=== PATIENT | male | born 1975 | race Asian ===

== ENCOUNTER 2017-02-04 13:04 | Emergency (ER) | payer OTHER ==
[2017-02-04 13:17] VITALS: BP 132/87
--- NOTE | 2017-02-04 13:26 | EDM.PDOC ---
ED HPI GENERAL MEDICAL PROBLEM - General Chief Complaint: Bite:Animal, Insect Stated Complaint: [id number] DOG BITE WORK[employer] COMP Time Seen by Provider: 02/04/17 13:22 Source of Information: Reports: Patient History Limitations: Reports: No Limitations - History of Present Illness INITIAL COMMENTS - FREE TEXT/NARRATIVE: 41 yo White Male c/o dog bite to right thigh Onset Date: 02/04/17 Onset Time: 12:00 Duration: Hour(s): Location: Reports: Lower Extremity, Left Quality: Reports: Ache Severity: Moderate Improves with: Reports: None Worsens with: Reports: Movement Associated Symptoms: Reports: No Other Symptoms - Related Data Allergies Allergy/AdvReac Type Severity Reaction Status Date / Time No Known Allergies Allergy Verified 02/04/17 13:10 Home Meds: Home Meds Aspirin [Halfprin] 1 tab PO DAILY 02/04/17 [History] Lisinopril 20 mg PO DAILY 02/04/17 [History] glyBURIDE [Glyburide] 5 mg PO DAILY 02/04/17 [History] metFORMIN [Glucophage XR] 1,000 mg PO DAILY 02/04/17 [History] ED ROS GENERAL - Review of Systems Review Of Systems: See Below Constitutional: Reports: No Symptoms HEENT: Reports: No Symptoms Respiratory: Reports: No Symptoms Cardiovascular: Reports: No Symptoms Endocrine: Reports: No Symptoms GI/Abdominal: Reports: No Symptoms : Reports: No Symptoms Musculoskeletal: Reports: No Symptoms Skin: Reports: Other (left ant.-lat thigh w/ 2 cm dog bite wound) Neurological: Reports: No Symptoms Psychiatric: Reports: No Symptoms Hematologic/Lymphatic: Reports: No Symptoms Immunologic: Reports: No Symptoms ED EXAM, ANIMAL BITE - Physical Exam Exam: See Below Exam Limited By: No Limitations General Appearance: Alert, WD/WN Eye Exam: Bilateral Eye: EOMI, PERRL Ears: Normal External Exam Nose: Normal Inspection Throat/Mouth: Normal Inspection Head: Atraumatic Neck: Normal Inspection Respiratory/Chest: No Respiratory Distress Cardiovascular: Normal Peripheral Pulses Peripheral Pulses: 2+: Femoral (L), Femoral (R) GI/Abdominal: Normal Bowel Sounds (Male) Exam: No Hernia Back Exam: Normal Inspection, Paraspinal Tenderness Extremities: Normal Range of Motion Neurological: Alert, Oriented Psychiatric: Normal Affect Skin Exam: Other (dog bite wound approx. 2cm w/o active bleeding) Lymphatic: No Adenopathy ED ANIMAL BITE PROCEDURES - Additional/Other Procedure(s) Other (Free Text) Procedure(s): Dog bite wound cleaned and edges approximated with steri-strips Course - Vital Signs Last Recorded V/S: Last Vital Signs Temp 35.8 C 02/04/17 13:16 Pulse 112 H 02/04/17 13:16 Resp 18 02/04/17 13:16 BP 132/87 02/04/17 13:16 Pulse Ox 98 02/04/17 13:16 Departure - Departure Time of Disposition: 13:32 Disposition: Home, Self-Care 01 Condition: Good Clinical Impression: Dog bite Qualifiers: Encounter type: initial encounter Qualified Code(s): W54.0XXA - Bitten by dog, initial encounter - Discharge Information Instructions: Animal Bite, [id number] Forms: ED Department Discharge Additional Instructions: Rest Keep left thigh wound clean and dry Take the oral anti-biotic as prescribed: Augmentin 500mg TID # 30 Use topical antibiotic : Bactroban Oint. BID # 44g F/U w/ PCP for wound check Monday or Monday
== END 2017-02-04 13:45 | disposition home or self-care (01) ==
LOC: DL.ED 13:04
DX: S71.151A Open bite, right thigh, initial encounter (principal); Z79.82 Long term (current) use of aspirin; Z79.899 Other long term (current) drug therapy; W54.0XXA Bitten by dog, initial encounter
CPT/HCPCS: 99283

== ENCOUNTER 2021-05-05 10:20 | Emergency (ER) | payer OTHER ==
[2021-05-05 10:57] VITALS: BP 105/78; PULSE 104
--- NOTE | 2021-05-05 10:59 | EDM.PDOC ---
ED HPI GENERAL MEDICAL PROBLEM - General Stated Complaint: IN BY AMBULANCE Time Seen by Provider: 05/05/21 10:35 Source of Information: Reports: Patient History Limitations: Reports: No Limitations - History of Present Illness INITIAL COMMENTS - FREE TEXT/NARRATIVE: This 46 yo male patient was brought to the ED by [facility] due to getting his wrist smashed by a 75 pound fiberglass lid. The patient reports after the incident, he started to feel hot and may have fainted. The patient reports he remembers waking up to see EMS personal standing over him. Onset: Today Duration: Minutes: Location: Reports: Upper Extremity, Right Quality: Reports: Ache Severity: Moderate Improves with: Reports: None Worsens with: Reports: None Context: Reports: Activity Associated Symptoms: Reports: Syncope Right Wrist Pain Score (Numeric/FACES): 0 - Related Data Allergies Allergy/AdvReac Type Severity Reaction Status Date / Time No Known Allergies Allergy Verified 02/04/17 13:10 Home Meds: Home Meds Aspirin [Halfprin] 1 tab PO DAILY 02/04/17 [History] Lisinopril 20 mg PO DAILY 02/04/17 [History] glyBURIDE [Glyburide] 5 mg PO DAILY 02/04/17 [History] metFORMIN [Glucophage XR] 1,000 mg PO DAILY 02/04/17 [History] Past Medical History Endocrine/Metabolic History: Reports: Diabetes, Type II ED ROS GENERAL - Review of Systems Review Of Systems: Comprehensive ROS is negative, except as noted in HPI. ED EXAM, GENERAL - Physical Exam Exam: See Below Exam Limited By: No Limitations General Appearance: Alert, WD/WN, Mild Distress Eye Exam: Bilateral Eye: EOMI, Normal Inspection, PERRL Ears: Normal External Exam, Normal Canal, Hearing Grossly Normal, Normal TMs Nose: Normal Inspection Throat/Mouth: Normal Inspection, Normal Lips, Normal Teeth, Normal Gums, Normal Oropharynx, Normal Voice, No Airway Compromise Head: Atraumatic, Normocephalic Neck: Normal Inspection, Supple, Non-Tender, Full Range of Motion Respiratory/Chest: No Respiratory Distress, Lungs Clear, Normal Breath Sounds, No Accessory Muscle Use, Chest Non-Tender Cardiovascular: Normal Peripheral Pulses, Regular Rate, Rhythm, No Edema, No Gallop, No JVD, No Murmur, No Rub GI/Abdominal: Normal Bowel Sounds, Soft, Non-Tender, No Organomegaly, No Distention, No Abnormal Bruit, No Mass (Male) Exam: Deferred Rectal (Males) Exam: Deferred Back Exam: Normal Inspection, Full Range of Motion, NT Extremities: Arm Pain (right wrist) Neurological: Alert, Oriented, CN II-XII Intact, Normal Cognition, Normal Gait, Normal Reflexes, No Motor/Sensory Deficits Psychiatric: Normal Affect, Normal Mood Skin Exam: Warm, Dry, Intact, Normal Color, No Rash Lymphatic: No Adenopathy #1 Interpretation EKG Date: 05/05/21 Time: 10:27 Rhythm: NSR Rate (Beats/Min): 103 [place]: Normal P-Wave: Present QRS: Normal ST-T: Normal QT: Normal Comparison: NA - No Prior EKG Course - Vital Signs Last Recorded V/S: Last Vital Signs Temp 97.4 F 05/05/21 10:42 Pulse 104 H 05/05/21 10:42 Resp 18 05/05/21 10:42 BP 105/78 05/05/21 10:42 Pulse Ox 98 05/05/21 10:42 - Orders/Labs/Meds Labs: Laboratory Tests 05/05/21 05/05/21 05/05/21 Range/Units 10:51 10:51 10:51 WBC 13.1 H (5.0-10.0) 10^3/uL RBC 4.38 L (4.6-6.2) 10^6/uL Hgb 13.9 L (14.0-18.0) g/dL Hct 41.6 (40.0-54.0) % MCV 95.0 (80-100) fL MCH 31.7 (27.0-34.0) pg MCHC 33.4 (33.0-35.0) g/dL Plt Count 216 (150-450) 10^3/uL Neut % (Auto) 78.2 H (42.2-75.2) % Lymph % (Auto) 12.1 L (20.5-50.1) % Brule % (Auto) 9.2 H (2-8) % Eos % (Auto) 0.3 L (1.0-3.0) % Baso % (Auto) 0.2 (0.0-1.0) % Sodium 137 (136-145) mmol/L Potassium 3.9 (3.5-5.1) mmol/L Chloride 103 (98-107) mmol/L Carbon Dioxide 23 (21-32) mmol/L Anion Gap 14.9 H (7-13) mEq/L BUN 20 H (7-18) mg/dL Creatinine 1.11 (0.70-1.30) mg/dL Est Cr Clr Drug Dosing 89.33 mL/min Estimated GFR (MDRD) > 60 BUN/Creatinine Ratio 18.0 (No establ ref range) Glucose 165 H (70-99) mg/dL Lactic Acid 0.8 (0.4-2.0) mmol/L Calcium 8.6 (8.5-10.1) mg/dL Total Bilirubin 0.8 (0.2-1.0) mg/dL AST 12 L (15-37) U/L ALT 19 (16-63) U/L Alkaline Phosphatase 63 (46-116) U/L Troponin I High Sens 5 (<=76) pg/mL Total Protein 7.2 (6.4-8.2) g/dL Albumin 3.4 (3.4-5.0) g/dL Globulin 3.8 Albumin/Globulin Ratio 0.9 Departure - Departure Time of Disposition: 11:51 Disposition: Home, Self-Care 01 Condition: Fair Clinical Impression: Contusion of right wrist Qualifiers: Encounter type: initial encounter Qualified Code(s): S60.211A - Contusion of right wrist, initial encounter Syncope Qualifiers: Syncope type: unspecified Qualified Code(s): R55 - Syncope and collapse - Discharge Information *PRESCRIPTION DRUG MONITORING PROGRAM REVIEWED*: Not Applicable *COPY OF PRESCRIPTION DRUG MONITORING REPORT IN PATIENT MAI: Not Applicable Instructions: Near-Syncope, [id number], Contusion, [id number] Forms: ED Department Discharge Care Plan Goals: The patient was advised of the examination, lab, x-ray and EKG results during the visit. The patient was given an DEONTE wrap for his right wrist during the visit. The patient was encouraged to rest, ice and elevate his right wrist over the next 24 hours. If the patient has any additional symptoms or concerns, the patient should either return to the emergency department or visit his primary care facility. Sepsis Event Note (ED) - Focused Exam Vital Signs: Vital Signs Temp Pulse Resp BP Pulse Ox 05/05/21 10:42 97.4 F 104 H 18 105/78 98
--- NOTE | 2021-05-05 11:12 | CR ---
EXAMINATION: Wrist Comp Min 3V Rt SEX: Male AGE: 46 years CLINICAL HISTORY: 46-year-old male right wrist injury at work. INTERPRETATION: Minimal soft tissue swelling dorsum of the wrist. 1. No sign of right wrist fracture or joint dislocation. 2. Early arthritic change DIP joint. 3. No foreign bodies or inflammatory periostitis. 4. Metacarpals of the hand in the distal radius/ulna unremarkable
[2021-05-05 11:19] LABS: ANION GAP 14.9 mEq/L (7-13); CHLORIDE,CL 103 mmol/L (98-107); SODIUM,NA 137 mmol/L (136-145)
== END 2021-05-05 12:16 | disposition home or self-care (01) ==
LOC: DL.ED 10:20
DX: S60.211A Contusion of right wrist, initial encounter (principal); R55 Syncope and collapse; E11.9 Type 2 diabetes mellitus without complications; Z79.82 Long term (current) use of aspirin; Z79.899 Other long term (current) drug therapy; W23.0XXA Caught, crushed, jammed, or pinched between moving objects, initial encounter
CPT/HCPCS: 36415; 73110-RT; 80053; 83605; 84484; 85025; 93005; 99284-25

== ENCOUNTER 2025-02-19 11:16 | Emergency (ER) | payer OTHER ==
[2025-02-19] MEDS ORDERED: Sodium Chloride 0.9% 10 ML Syringe FLUSH PRN (11:34)
[2025-02-19] MEDS: diphenhydrAMINE 50 MG/ML SDV IVPUSH ONE (11:40)
[2025-02-19] MEDS: methylPREDNISolone Sodium Succinate 125 MG/2 ML SDV IVPUSH ONE (11:40)
[2025-02-19 12:42] VITALS: BP 110/81; PULSE 91
== END 2025-02-19 12:30 | disposition home or self-care (01) ==
LOC: DL.ED 11:16
DX: T63.441A Toxic effect of venom of bees, accidental (unintentional), initial encounter (principal); E11.9 Type 2 diabetes mellitus without complications; F17.200 Nicotine dependence, unspecified, uncomplicated; Z79.82 Long term (current) use of aspirin; Z79.84 Long term (current) use of oral hypoglycemic drugs; Z79.899 Other long term (current) drug therapy; Z86.16 Personal history of COVID-19
CPT/HCPCS: 96374; 96375; 99283; 99283-25; J1200; J1308; J2919; J7030